=== PATIENT | female | born 1995 | race Caucasian/White ===

== ENCOUNTER 2017-08-24 12:05 | Emergency (ER) | payer SELFPAY ==
[~2017-08-24] VITALS: Ht 152.4 cm; Wt 67.4 kg
[~2017-08-24 12:05] MED LIST: Z.0.NO CURRENT MEDS
[2017-08-24 12:07] VITALS: BP 141/79; PULSE 82; RESP 18; TEMP 98.2; O2SAT 99
--- NOTE | 2017-08-24 12:26 | PD ---
HPI Chief Complaint: Respiratory Symptoms Time Seen by Provider: 12:14 Travel History International Travel<30 days: No Contact w/Intl Traveler<30days: No Traveled to known affect area: No History of Present Illness HPI This 22-year-old female is complaining of shortness of breath. She says she has been short of breath off and on for several months. She says when she was young she had some kind of lung infection and had to get aerosol treatments. Is not aware of a history of asthma. She does not smoke. She is not on control pills she was on years ago. She has an occasional cough. [facility] Past Medical History Diminished Hearing: No ?: Not LMP: 08/24/17 Social History Alcohol Use: No Tobacco Use: No Substance Use: No Allergies-Medications (Allergen,Severity, Reaction): Coded Allergies: No Known Allergies (Verified Allergy, Mild, 08/24/17) Reported Meds & Prescriptions Reported Meds & Active Scripts Active Reported No Current Meds (Miscellaneous Medication) Misc Review of Systems General / Constitutional: No: Fever, Chills Eyes: No: Diploplia, Blurred Vision HENT: No: Headaches, Vertigo Cardiovascular: No: Chest Pain or Discomfort Respiratory: Positive: Cough, Shortness of Breath Gastrointestinal: No: Vomiting, Diarrhea Genitourinary: No: Urgency, Frequency Musculoskeletal: No: Myalgias Skin: Positive Rash Neurologic: No: Weakness, Dizziness Psychiatric: No: Anxiety, Depression Hematologic/Lymphatic: No: Easy Bruising Physical Exam Narrative GENERAL: Well-developed female SKIN: Focused skin assessment warm/dry. Erythematous rash involving both cheeks and the forehead HEAD: Atraumatic. Normocephalic. EYES: Pupils equal and round. No scleral icterus. No injection or drainage. ENT: No nasal bleeding or discharge. Mucous membranes pink and moist. NECK: Trachea midline. No JVD. CARDIOVASCULAR: Regular rate and rhythm. No murmur appreciated. RESPIRATORY: No accessory muscle use. Clear to auscultation. Breath sounds equal bilaterally. GASTROINTESTINAL: Abdomen soft, non-tender, nondistended. Hepatic and splenic margins not palpable. MUSCULOSKELETAL: No obvious deformities. No clubbing. No cyanosis. No edema. NEUROLOGICAL: Awake and alert. No obvious cranial nerve deficits. Motor grossly within normal limits. Normal speech. PSYCHIATRIC: Appropriate mood and affect; insight and judgment normal. Data Data Last Documented VS Vital Signs Date Time Temp Pulse Resp B/P (MAP) Pulse Ox O2 Delivery O2 Flow Rate FiO2 08/24/17 14:07 73 16 117/68 (84) 98 08/24/17 12:07 98.2 Orders Orders Electrocardiogram (08/24/17 12:21) Complete Blood Count With Diff (08/24/17 12:21) Comprehensive Metabolic Panel (08/24/17 12:21) Troponin I (08/24/17 12:21) D-Dimer (08/24/17 12:21) Chest, Pa & Lat (08/24/17 12:21) Ed Urine Pregnancytest Poc (08/24/17 12:21) Westergren Sedimentation Rate (08/24/17 12:24) Labs Laboratory Tests Test 08/24/17 12:24 White Blood Count 8.0 TH/MM3 Red Blood Count 4.84 MIL/MM3 Hemoglobin 14.5 GM/DL Hematocrit 43.2 % Mean Corpuscular Volume 89.2 FL Mean Corpuscular Hemoglobin 29.9 PG Mean Corpuscular Hemoglobin Concent 33.5 % Red Cell Distribution Width 12.0 % Platelet Count 271 TH/MM3 Mean Platelet Volume 8.0 FL Neutrophils (%) (Auto) 54.3 % Lymphocytes (%) (Auto) 32.2 % Monocytes (%) (Auto) 7.3 % Eosinophils (%) (Auto) 3.4 % Basophils (%) (Auto) 2.8 % Neutrophils # (Auto) 4.3 TH/MM3 Lymphocytes # (Auto) 2.6 TH/MM3 Monocytes # (Auto) 0.6 TH/MM3 Eosinophils # (Auto) 0.3 TH/MM3 Basophils # (Auto) 0.2 TH/MM3 CBC Comment DIFF FINAL Differential Comment Erythrocyte Sedimentation Rate 4 mm/hr D-Dimer Quantitative (PE/DVT) 0.49 MG/L FEU Blood Urea Nitrogen 11 MG/DL Creatinine 0.68 MG/DL Random Glucose 81 MG/DL Total Protein 7.5 GM/DL Albumin 3.8 GM/DL Calcium Level 8.5 MG/DL Alkaline Phosphatase 56 U/L Aspartate Amino Transf (AST/SGOT) 16 U/L Alanine Aminotransferase (ALT/SGPT) 15 U/L Total Bilirubin 0.3 MG/DL Sodium Level 139 MEQ/L Potassium Level 3.8 MEQ/L Chloride Level 107 MEQ/L Carbon Dioxide Level 26.3 MEQ/L Anion Gap 6 MEQ/L Estimat Glomerular Filtration Rate 107 ML/MIN Troponin I LESS THAN 0.02 NG/ML MDM Medical Decision Making Medical Screen Exam Complete: Yes Emergency Medical Condition: Yes Medical Record Reviewed: Yes Differential Diagnosis Differential includes asthma, PE, anxiety, pulmonary hypertension Narrative Course EKG shows sinus rhythm. There is a prominent P-wave. There is an incomplete right bundle branch block. D-dimer is 0.49 so CTA has not been ordered. Chest x-ray negative. Workup was really negative. I am concerned about the malar rash and the nonspecific abnormalities on the EKG. I have spoken to the patient with her mother present at some length and have recommended that she should follow-up with a water pollution specialist for evaluation of possible urinary hypertension though we have not found any evidence on her evaluation Diagnosis Primary Impression: Dyspnea Referrals: Sera Blanco MD Additional Instructions: Follow-up with water pollution specialist Disposition: 01 DISCHARGE HOME Condition: Stable Jero Morrissey MD Aug 24, 2017 12:26
[2017-08-24 12:42] LABS: AUTOMATED NEUTROPHIL # 4.3 TH/MM3 (1.8-7.7); BASOPHIL # 0.2 TH/MM3 (0-0.2); BASOPHIL % 2.8 % (0.0-2.0); EOSINOPHIL # 0.3 TH/MM3 (0-0.4); EOSINOPHIL % 3.4 % (0.0-4.0); HEMATOCRIT 43.2 % (35.0-46.0); HEMOGLOBIN 14.5 GM/DL (11.6-15.3); LYMPH % 32.2 % (9.0-44.0); LYMPHOCYTE # 2.6 TH/MM3 (1.0-4.8); MEAN CELL VOLUME 89.2 FL (80.0-100.0); MEAN CORPUSCULAR HEMOGLOBIN 29.9 PG (27.0-34.0); MEAN CORPUSCULAR HGB CONC 33.5 % (32.0-36.0); MONO % 7.3 % (0.0-8.0); MONOCYTE # 0.6 TH/MM3 (0-0.9); NEUT % 54.3 % (16.0-70.0); PLATELET COUNT 271 TH/MM3 (150-450); RED BLOOD COUNT 4.84 MIL/MM3 (4.00-5.30)
[2017-08-24 12:50] LABS: CHLORIDE 107 MEQ/L (98-107); SODIUM (NA) 139 MEQ/L (136-145)
[2017-08-24 12:53] LABS: CALCIUM 8.5 MG/DL (8.5-10.1)
[2017-08-24 12:54] LABS: ALBUMIN 3.8 GM/DL (3.4-5.0); BICARBONATE 26.3 MEQ/L (21.0-32.0); BLOOD UREA NITROGEN 11 MG/DL (7-18); GLUCOSE,RANDOM 81 MG/DL (74-106)
[2017-08-24 12:57] LABS: ALT (GPT) 15 U/L (10-53); AST (GOT) 16 U/L (15-37); CREATININE 0.68 MG/DL (0.50-1.00); GLOMERULAR FILTRATION RATE 107 ML/MIN (>89)
--- NOTE | 2017-08-24 12:58 | RADRPT ---
EXAM DATE/TIME: 08/24/2017 12:48 [facility] COMPARISON: No previous studies available for comparison. INDICATIONS : Shortness of breath. MEDICAL HISTORY : None. SURGICAL HISTORY : None. ENCOUNTER: Initial ACUITY: 2 months PAIN SCORE: 0/10 LOCATION: Bilateral chest FINDINGS: PA and lateral views of the chest demonstrate the lungs to be symmetrically aerated without evidence of mass, infiltrate or effusion. The cardiomediastinal contours are unremarkable. Osseous structure s are intact. CONCLUSION: Normal examination for a patient of this age. Amor Curry MD on August 24, 2017 at 12:56 Board Certified Radiologist. This report was verified electronically.
[2017-08-24 12:59] LABS: TOTAL BILIRUBIN ADULT 0.3 MG/DL (0.2-1.0); TOTAL PROTEIN 7.5 GM/DL (6.4-8.2)
[2017-08-24 13:00] LABS: ALKALINE PHOSPHATASE 56 U/L (45-117)
[2017-08-24 13:02] LABS: TROPONIN I LESS THAN 0.02 NG/ML (0.02-0.05)
[2017-08-24 13:05] VITALS: BP 111/65; PULSE 84; RESP 16; O2SAT 97
[2017-08-24 14:07] VITALS: BP 117/68; PULSE 73; RESP 16; O2SAT 98
--- NOTE | 2017-08-25 19:19 | EKG ---
Date Performed: 08/24/2017 Time Performed: 12:33:36 PTAGE: 22 years EKG: Sinus rhythm INCOMPLETE RIGHT BUNDLE BRANCH BLOCK BORDERLINE ECG NO PREVIOUS TRACING DOCTOR: Javad Edwards Interpretating Date/Time 08/25/2017 19:15:55
== END 2017-08-24 14:41 | disposition home or self-care (01) ==
LOC: PHED 12:05
DX: R06.00 Dyspnea, unspecified (principal); R05 Cough; R21 Rash and other nonspecific skin eruption; I45.19 Other right bundle-branch block; R94.31 Abnormal electrocardiogram [ECG] [EKG]
CPT/HCPCS: 71046; 80053; 84484; 84703; 85025; 85379; 85652; 93005; 99285